=== PATIENT | female | born 1995 | race Caucasian/White ===

== ENCOUNTER 2018-01-01 07:33 | Emergency (ER) | payer BC ==
[2018-01-01] MEDS ORDERED: Ondansetron 4 MG/2 ML SDV IVPUSH ONE (08:11)
[2018-01-01] MEDS ORDERED: Sodium Chloride 0.9% 10 ML Syringe FLUSH PRN (08:11)
[2018-01-01] MEDS ORDERED: HYDROmorphone 0.5 MG/0.5 ML SYRINGE IVPUSH ONE (08:12)
[2018-01-01] MEDS ORDERED: Ketorolac 30 MG/ML SDV IVPUSH ONE (08:13)
[2018-01-01] MEDS ORDERED: Sodium Chloride 0.9% 1,000 ML IV SCH (08:15)
--- NOTE | 2018-01-01 08:22 | EDM.PDOC ---
ED HPI GENERAL MEDICAL PROBLEM - General Chief Complaint: Abdominal Pain Stated Complaint: R SIDE ABDOMINAL PAIN Time Seen by Provider: 01/01/18 08:04 Source of Information: Reports: Patient History Limitations: Reports: No Limitations - History of Present Illness INITIAL COMMENTS - FREE TEXT/NARRATIVE: The patient presents with right flank pain. This started about 1 week ago and it has gotten worse. She has urinary frequency. She has no dysuria. She has no fever or chills. She has some shortness of breath but no chest pain. She has nausea or no vomiting. She still has her gallbladder and appendix. She does not think she is but it is possible. Onset: Gradual Duration: Week(s): (1) Quality: Reports: Sharp Severity: Moderate Improves with: Reports: None Worsens with: Reports: None Associated Symptoms: Reports: Nausea/Vomiting. Denies: Chest Pain, Cough, Fever /Chills, Headaches, Shortness of Breath Right Lower Abdomen Pain Score (Numeric/FACES): 10 - Related Data Allergies Allergy/AdvReac Type Severity Reaction Status Date / Time metronidazole Allergy Swelling Verified 01/01/18 08:46 Home Meds: Home Meds Escitalopram [Lexapro] 10 mg PO DAILY 01/01/18 [History] Hydrocodone/Acetaminophen [Hydrocodon-Acetaminophen 5-325] 1 - 2 each PO Q6HR PRN #10 tablet 01/01/18 [Rx] Mupirocin Oint [Bactroban Oint] 1 applic TOP TID 01/01/18 [History] Nitrofurantoin Monohyd/M-Cryst [Macrobid 100 mg Capsule] 100 mg PO BID #10 capsule 01/01/18 [Rx] Pantoprazole [ProTONIX] 20 mg PO DAILY 01/01/18 [History] Sucralfate 1 gm PO QID 01/01/18 [History] hydrOXYzine HCl [hydrOXYzine] 25 mg PO Q6HR PRN 01/01/18 [History] Past Medical History Cardiovascular History: Reports: Other (See Below) Other Cardiovascular History: pulmonary stenosis Gastrointestinal History: Reports: None Psychiatric History: Reports: Anxiety - Past Surgical History Cardiovascular Surgical History: Reports: Other (See Below) Other Cardiovascular Surgeries/Procedures: sx. for pulmonary stenosis in 7th grade GI Surgical History: Reports: EGD Social & Family History - Family History Family Medical History: Noncontributory - Tobacco Use Smoking Status *Q: Current Every Day Smoker Years of Tobacco use: 10 Packs/Tins Daily: 1 - Caffeine Use Caffeine Use: Reports: Soda, Tea - Recreational Drug Use Recreational Drug Use: No ED ROS GENERAL - Review of Systems Review Of Systems: See Below Constitutional: Reports: No Symptoms HEENT: Reports: No Symptoms Respiratory: Reports: No Symptoms Cardiovascular: Reports: No Symptoms Endocrine: Reports: No Symptoms GI/Abdominal: Reports: Abdominal Pain, Nausea. Denies: Diarrhea, Vomiting : Reports: Flank Pain (Right) Musculoskeletal: Reports: No Symptoms ED EXAM, GI/ABD - Physical Exam Exam: See Below Exam Limited By: No Limitations General Appearance: Alert, No Apparent Distress Ears: Normal External Exam Nose: Normal Inspection Head: Atraumatic, Normocephalic Neck: Normal Inspection Respiratory/Chest: No Respiratory Distress, Lungs Clear, Normal Breath Sounds Cardiovascular: Regular Rate, Rhythm, No Edema, No Murmur GI/Abdominal Exam: Soft, No Organomegaly, No Mass, Tender (Moderate right lateral flank pain) Course - Vital Signs Last Recorded V/S: Last Vital Signs Temp 98.0 F 01/01/18 07:43 Pulse 85 01/01/18 07:43 Resp 14 01/01/18 07:43 BP 116/62 01/01/18 07:43 Pulse Ox 100 01/01/18 07:43 - Orders/Labs/Meds Orders: Active Orders 24 hr Category Date Time Status Peripheral IV Care [RC] . DIRECTED Care 01/01/18 08:11 Active UA W/MICROSCOPIC [URIN] Stat Lab 01/01/18 07:50 Ordered Sodium Chloride 0.9% [Normal Saline] 1,000 ml Med 01/01/18 08:15 Active IV ASDIRECTED Sodium Chloride 0.9% [Saline Flush] Med 01/01/18 08:11 Active 10 ml FLUSH ASDIRECTED PRN ED Antiemetic Medication Reflex [OM.PC] Stat Oth 01/01/18 08:11 Ordered Peripheral IV Insertion Adult [OM.PC] Stat Oth 01/01/18 08:11 Ordered Medication Orders Sodium Chloride (Normal Saline) 1,000 mls @ 125 mls/hr IV ASDIRECTED [facility] Last Admin: 01/01/18 08:38 Dose: 125 mls/hr Sodium Chloride (Saline Flush) 10 ml FLUSH ASDIRECTED PRN PRN Reason: Keep Vein Open Last Admin: 01/01/18 08:38 Dose: 10 ml Labs: Laboratory Tests 01/01/18 01/01/18 01/01/18 Range/Units 07:34 07:34 07:34 WBC 9.70 (3.98-10.04) K/mm3 RBC 4.36 (3.98-5.22) M/mm3 Hgb 13.6 (11.2-15.7) gm/L Hct 40.9 (34.1-44.9) % MCV 93.8 (79.4-94.8) fl MCH 31.2 (25.6-32.2) pg MCHC 33.3 (32.2-35.5) g/dl RDW Std Deviation 41.4 (36.4-46.3) fL Plt Count 255 (182-369) K/mm3 MPV 9.9 (9.4-12.3) fl Neut % (Auto) 65.4 (34.0-71.1) % Lymph % (Auto) 24.9 (19.3-51.7) % [place] % (Auto) 6.3 (4.7-12.5) % Eos % (Auto) 2.7 (0.7-5.8) Baso % (Auto) 0.2 (0.1-1.2) % Neut # (Auto) 6.34 H (1.56-6.13) K/mm3 Lymph # (Auto) 2.42 (1.18-3.74) K/mm3 [place] # (Auto) 0.61 H (0.24-0.36) K/mm3 Eos # (Auto) 0.26 (0.04-0.36) K/mm3 Baso # (Auto) 0.02 (0.01-0.08) K/mm3 Sodium 141 (136-145) mEq/L Potassium 4.0 (3.5-5.1) mEq/L Chloride 106 (98-107) mEq/L Carbon Dioxide 27 (21-32) mEq/L Anion Gap 12.0 (5-15) BUN 17 (7-18) mg/dL Creatinine 0.7 (0.55-1.02) mg/dL Est Cr Clr Drug Dosing 99.70 mL/min Estimated GFR (MDRD) > 60 (>60) mL/min BUN/Creatinine Ratio 24.3 H (14-18) Glucose 79 (74-106) mg/dL Calcium 8.7 (8.5-10.1) mg/dL Total Bilirubin 0.2 (0.2-1.0) mg/dL AST 11 L (15-37) U/L ALT 24 (14-59) U/L Alkaline Phosphatase 82 (46-116) U/L Total Protein 6.5 (6.4-8.2) g/dl Albumin 3.1 L (3.4-5.0) g/dl Globulin 3.4 gm/dL Albumin/Globulin Ratio 0.9 L (1-2) Lipase 266 (73-393) U/L HCG, Qual Negative (NEGATIVE) Urine Color (Yellow) Urine Appearance (Clear) Urine pH (5.0-8.0) Ur Specific [place] (1.005-1.030) Urine Protein (Negative) Urine Glucose (UA) (Negative) Urine Ketones (Negative) Urine Occult Blood (Negative) Urine Nitrite (Negative) Urine Bilirubin (Negative) Urine Urobilinogen (0.2-1.0) Ur Leukocyte Esterase (Negative) Urine RBC (0-5) /hpf Urine WBC (0-5) /hpf Ur Epithelial Cells (0-5) /hpf Urine Bacteria (FEW) /hpf Urine Mucus (FEW) /hpf 01/01/18 Range/Units 07:50 WBC (3.98-10.04) K/mm3 RBC (3.98-5.22) M/mm3 Hgb (11.2-15.7) gm/L Hct (34.1-44.9) % MCV (79.4-94.8) fl MCH (25.6-32.2) pg MCHC (32.2-35.5) g/dl RDW Std Deviation (36.4-46.3) fL Plt Count (182-369) K/mm3 MPV (9.4-12.3) fl Neut % (Auto) (34.0-71.1) % Lymph % (Auto) (19.3-51.7) % [place] % (Auto) (4.7-12.5) % Eos % (Auto) (0.7-5.8) Baso % (Auto) (0.1-1.2) % Neut # (Auto) (1.56-6.13) K/mm3 Lymph # (Auto) (1.18-3.74) K/mm3 [place] # (Auto) (0.24-0.36) K/mm3 Eos # (Auto) (0.04-0.36) K/mm3 Baso # (Auto) (0.01-0.08) K/mm3 Sodium (136-145) mEq/L Potassium (3.5-5.1) mEq/L Chloride (98-107) mEq/L Carbon Dioxide (21-32) mEq/L Anion Gap (5-15) BUN (7-18) mg/dL Creatinine (0.55-1.02) mg/dL Est Cr Clr Drug Dosing mL/min Estimated GFR (MDRD) (>60) mL/min BUN/Creatinine Ratio (14-18) Glucose (74-106) mg/dL Calcium (8.5-10.1) mg/dL Total Bilirubin (0.2-1.0) mg/dL AST (15-37) U/L ALT (14-59) U/L Alkaline Phosphatase (46-116) U/L Total Protein (6.4-8.2) g/dl Albumin (3.4-5.0) g/dl Globulin gm/dL Albumin/Globulin Ratio (1-2) Lipase (73-393) U/L HCG, Qual (NEGATIVE) Urine Color Light yellow (Yellow) Urine Appearance Clear (Clear) Urine pH 6.0 (5.0-8.0) Ur Specific [place] 1.020 (1.005-1.030) Urine Protein Negative (Negative) Urine Glucose (UA) Negative (Negative) Urine Ketones Negative (Negative) Urine Occult Blood Negative (Negative) Urine Nitrite Negative (Negative) Urine Bilirubin Negative (Negative) Urine Urobilinogen 0.2 (0.2-1.0) Ur Leukocyte Esterase 1+ H (Negative) Urine RBC Not seen (0-5) /hpf Urine WBC 5-10 H (0-5) /hpf Ur Epithelial Cells 0-5 (0-5) /hpf Urine Bacteria Few (FEW) /hpf Urine Mucus Not seen (FEW) /hpf Meds: Medications Generic Name Dose Route Start Last Admin Trade Name Freq PRN Reason Stop Dose Admin Sodium Chloride 1,000 mls @ 125 mls/hr 01/01/18 08:15 01/01/18 08:38 Normal Saline IV 125 mls/hr ASDIRECTED KHADRA Administration Sodium Chloride 10 ml 01/01/18 08:11 01/01/18 08:38 Saline Flush FLUSH 10 ml ASDIRECTED PRN Administration Keep Vein Open Discontinued Medications Generic Name Dose Route Start Last Admin Trade Name Noemy PRN Reason Stop Dose Admin Diatrizoate Meglum/Diatrizoate Sod 90 ml 01/01/18 09:40 Gastrografin 37% PO 01/01/18 09:41 ONETIME ONE Hydromorphone HCl 0.5 mg 01/01/18 08:12 01/01/18 08:37 Dilaudid IVPUSH 01/01/18 08:13 0.5 mg ONETIME ONE Administration Ketorolac Tromethamine 30 mg 01/01/18 08:13 01/01/18 08:37 Toradol IVPUSH 01/01/18 08:14 30 mg ONETIME ONE Administration Ondansetron HCl 4 mg 01/01/18 08:11 01/01/18 08:37 Zofran IVPUSH 01/01/18 08:12 4 mg ONETIME ONE Administration - Re-Assessments/Exams Free Text/Narrative Re-Assessment/Exam: 01/01/18 08:24 I ordered an IV NS at 125mL/hr, zofran 4mg IV, dilaudid 0.5mg IV, labs, UA and CT. 01/01/18 11:21 Her CBC and CMP look good. Her Hcg is negative. Her lipase is normal. Her UA shows no UTI. Her CT shows nothing acute. I will treat her for the UTI but I do not think that was causing all of her pain. She is not sure if she ran into something today. Departure - Departure Time of Disposition: 11:25 Disposition: Home, Self-Care 01 Condition: Good Clinical Impression: Right flank pain UTI (urinary tract infection) Qualifiers: Urinary tract infection type: acute cystitis Hematuria presence: without hematuria Qualified Code(s): N30.00 - Acute cystitis without hematuria - Discharge Information Prescriptions: Nitrofurantoin Monohyd/M-Cryst [Macrobid 100 mg Capsule] 100 mg PO BID #10 capsule Referrals: Sienna Linares PA-C [Primary Care Provider] - 1 Week Forms: ED Department Discharge Additional Instructions: Drink plenty of fluids. Take the macrobid 2 times per day for 5 days. Take motrin or tylenol for pain. You may also take some hydrocodone for pain. Please return if you are worse. - My Orders Last 24 Hours: My Active Orders 01/01/18 07:50 UA W/MICROSCOPIC [URIN] Stat 01/01/18 08:11 Peripheral IV Care [RC] . DIRECTED Sodium Chloride 0.9% [Saline Flush] 10 ml FLUSH ASDIRECTED PRN ED Antiemetic Medication Reflex [OM.PC] Stat Peripheral IV Insertion Adult [OM.PC] Stat 01/01/18 08:15 Sodium Chloride 0.9% [Normal Saline] 1,000 ml IV ASDIRECTED - Assessment/Plan Last 24 Hours: My Active Orders 01/01/18 07:50 UA W/MICROSCOPIC [URIN] Stat 01/01/18 08:11 Peripheral IV Care [RC] . DIRECTED Sodium Chloride 0.9% [Saline Flush] 10 ml FLUSH ASDIRECTED PRN ED Antiemetic Medication Reflex [OM.PC] Stat Peripheral IV Insertion Adult [OM.PC] Stat 01/01/18 08:15 Sodium Chloride 0.9% [Normal Saline] 1,000 ml IV ASDIRECTED
[2018-01-01] MEDS ORDERED: Diatrizoate Meglumine/Diatrizoate Sodium 37% 120 ML Bottle PO ONE (09:40)
--- NOTE | 2018-01-01 10:43 | CT ---
CT abdomen and pelvis Technique: Multiple axial sections were obtained from above the dome of the diaphragm inferiorly through the pubic symphysis. Intravenous contrast not utilized. Oral contrast has been given. Findings: Images are grainy decreasing details which apparently is due to equipment malfunction. Comparison: No previous study. Appendix is seen which is normal. Kidneys show no abnormal calcifications. No ureteral dilatation or ureteral stone is seen. No bladder calculi are seen. Visualized lung bases shows nothing acute. Noncontrast appearance of the liver and spleen appear within normal limits. Adrenal glands show no nodule. Gallbladder contains no calcified gallstones. Pancreas is within normal limits. Aorta shows no aneurysmal dilatation. No retroperitoneal adenopathy or mesenteric abnormalities are seen. No pelvic mass or adenopathy is seen. No free fluid or inflammatory change is seen. Bone window settings were reviewed which appears within normal limits for the patient's age. Impression: 1. Slightly diminished details due to machine malfunction. 2. Appendix appears normal. No renal calculi, ureteral dilatation or ureteral stone is seen. 3. Other portions of the noncontrast CT study of the abdomen and pelvis show nothing acute. Diagnostic code #2
== END 2018-01-01 12:15 | disposition home or self-care (01) ==
LOC: JD.ED 07:33
DX: N30.00 Acute cystitis without hematuria (principal); F17.210 Nicotine dependence, cigarettes, uncomplicated; Z88.8 Allergy status to other drugs, medicaments and biological substances
CPT/HCPCS: 36415; 74176; 80053; 81001; 83690; 84703; 85025; 96361; 96374; 96375; 99285; J1170; J1885; J2405; J7040; J7050; Q9963; 99284

== ENCOUNTER 2018-04-03 05:31 | Emergency (ER) | payer BC ==
[2018-04-03] MEDS ORDERED: Ketorolac 30 MG/ML SDV IVPUSH ONE (06:08)
[2018-04-03] MEDS ORDERED: Prochlorperazine 5 MG in Sodium Chloride 0.9% 50 ML IV ONE (06:09)
[2018-04-03] MEDS ORDERED: diphenhydrAMINE 50 MG/ML SDV IVPUSH ONE (06:10)
--- NOTE | 2018-04-03 12:11 | ER ---
REASON FOR EMERGENCY ROOM VISIT: Headaches. HISTORY: This 22-year-old woman comes in because she has had a headache that has been bothering her more than usual last night and she has not been able to get any sleep. She states that she has a history of migraine headaches dating back to grade school. They were quite troublesome and she had to see a physician quite often during [employer] and high school and then things tended to settle down only to increase again in the last couple of years. She has seen Dr. Salazar, her primary care provider in [place], and since moving to [place], she has seen Sienna Linares, nurse practitioner, here for her medical needs. She states that she has been seeing these providers for her headaches and workup of number of other constellation of symptoms somewhat related to these headaches. She states that the headache is constant and tends to wax and wane. It is not throbbing. It does not have any thunderclap type characteristics to it. It is more on the right side of her head over the temporal area than the left side. Exposure to bright lights and loud noises worsens it. She rarely experiences nausea from her headache. She has been emotionally labile, partly because of sleep deprivation and states that "I can't even think straight." She has not had any nausea or vomiting this evening. She denies any visual symptoms. She has not had any numbness or weakness, although she relates a peculiar history for the last 6 weeks or so of experiencing electrical shock type sensations in the bottoms of her feet. PAST MEDICAL HISTORY: Significant for urinary tract infection. See electronic medical record. CURRENT MEDICATIONS: See EMR. ALLERGIES: Metronidazole. REVIEW OF SYSTEMS: Pertinent positives and negatives as listed in the HPI. SOCIAL HISTORY: She lives with a boyfriend. She is a smoker. Denies any illicit drug use. She rarely uses alcohol. PHYSICAL EXAMINATION: GENERAL: She seems to be somewhat unkempt. See electronic medical record. VITAL SIGNS: She is afebrile, blood pressure 137/92, pulse of 92, O2 sats 100% on room air. HEENT: Head is normocephalic. No temporal artery tenderness. TMs are normal. Eyes; no conjunctival injection. Oropharynx is normal. NECK: Supple. No adenopathy. No bruits. CHEST: Clear to auscultation. CARDIAC: Regular rate without murmur. EXTREMITIES: Normal pulses. No edema. NEUROLOGIC: Cranial nerves II through XII are intact. Deep tendon reflexes are symmetrical bilaterally in the upper and lower extremities. Muscle strength, bulk, and tone are normal. Sensory examination is normal to crude touch. IMPRESSION: Probable migraine headache given her history with considerable emotional overlay. PLAN: We were set to give her Toradol, Compazine, and Benadryl and she refused any needles and wants to take pills and prefers ibuprofen. I instructed her to follow up with her provider, Sienna Linares, who may want to give consideration to CT scan in light of her worsening headaches. That will be something for them to decide. I did discuss ibuprofen, aspirin, and Tylenol, and she will give this a try. All questions were answered. MMODAL /[id number]
== END 2018-04-03 06:50 | disposition left against medical advice (07) ==
LOC: JD.ED 05:31
DX: R51 Headache (principal); F17.290 Nicotine dependence, other tobacco product, uncomplicated; Z88.8 Allergy status to other drugs, medicaments and biological substances
CPT/HCPCS: 99283; 99284

== ENCOUNTER 2021-05-17 14:04 | Emergency (ER) | payer BC | END 2021-05-17 16:00 | LOC: JD.ED 14:04 | DX: Z53.21 Procedure and treatment not carried out due to patient leaving prior to being seen by health care provider (principal) ==

== ENCOUNTER 2023-09-08 17:15 | Emergency (ER) | payer SELFPAY ==
[2023-09-08 18:52] LABS: CORONAVIRUS COVID-19 NAA NEGATIVE (NEGATIVE); INFLUENZA A NAA NEGATIVE (NEGATIVE); RESPIRATORY SYNCYTIAL VIR NAA NEGATIVE (NEGATIVE)
[2023-09-08] MEDS ORDERED: Doxycycline Monohydrate 100 MG Cap PO ONE (19:44)
[2023-09-08] MEDS: Azithromycin 250 MG Tab PO ONE (19:45)
[2023-09-08] MEDS: Benzonatate 100 MG Cap PO ONE (19:45)
== END 2023-09-08 19:50 | disposition home or self-care (01) ==
LOC: JD.ED 17:15
DX: J10.1 Influenza due to other identified influenza virus with other respiratory manifestations (principal); J40 Bronchitis, not specified as acute or chronic; F17.210 Nicotine dependence, cigarettes, uncomplicated; Z88.8 Allergy status to other drugs, medicaments and biological substances
CPT/HCPCS: 0241U; 71045; 99283; A9270

== ENCOUNTER 2023-12-03 10:33 | Emergency (ER) | payer SELFPAY ==
[2023-12-03] MEDS: Metoclopramide 10 MG/2 ML SDV IVPUSH ONE (11:15)
[2023-12-03] MEDS: diphenhydrAMINE 50 MG/ML SDV IVPUSH ONE (11:17)
[2023-12-03] MEDS: Lactated Ringers 1,000 ML IV ONE (11:20)
[2023-12-03] MEDS: Ketorolac 30 MG/ML SDV IVPUSH ONE (12:09)
[2023-12-03] MEDS: SUMAtriptan 6 MG/0.5 ML SDV SUBCUT ONE (12:35)
[2023-12-03] MEDS: Lactated Ringers 1,000 ML IV SCH (12:36)
== END 2023-12-03 13:47 | disposition home or self-care (01) ==
LOC: JD.ED 10:33
DX: G43.909 Migraine, unspecified, not intractable, without status migrainosus (principal); F17.210 Nicotine dependence, cigarettes, uncomplicated; Z88.8 Allergy status to other drugs, medicaments and biological substances
CPT/HCPCS: 70450; 96361; 96372; 96374; 96375; 99284; J1200; J1885; J2765; J3030; J7120

== ENCOUNTER 2025-04-07 07:44 | Emergency (ER) | payer SELFPAY ==
[2025-04-07] MEDS ORDERED: methylPREDNISolone Sodium Succinate 125 MG/2 ML SDV IVPUSH ONE (08:32)
== END 2025-04-07 08:52 | disposition home or self-care (01) ==
LOC: JD.ED 07:44
DX: L50.9 Urticaria, unspecified (principal); L85.3 Xerosis cutis; Z88.8 Allergy status to other drugs, medicaments and biological substances; Z79.899 Other long term (current) drug therapy
CPT/HCPCS: 99282; 99283

== ENCOUNTER 2025-06-09 08:49 | Day surgery (SDC) | payer SELFPAY ==
[~2025-06-09 08:49] MED LIST: Sodium Chloride 0.9% 10 ML Syringe FLUSH PRN; Sodium Chloride 0.9% 10 ML Syringe FLUSH SCH
[2025-06-09] MEDS: Lactated Ringers 1,000 ML IV SCH (09:30)
[2025-06-09] MEDS ORDERED: propofoL 1,000 MG/100 ML 100 ML ONE (09:51)
[2025-06-09] MEDS ORDERED: Dexamethasone 4 MG/ML 5 ML MDV ONE (09:52)
[2025-06-09] MEDS ORDERED: fentaNYL 250 MCG/5 ML SDV ONE (09:52)
[2025-06-09] MEDS ORDERED: Propofol 200 MG/20 ML SDV ONE ×2 (09:52→11:15)
[2025-06-09] MEDS ORDERED: Midazolam 1 MG/ML 2 ML SDV ONE (09:52)
[2025-06-09] MEDS ORDERED: Ondansetron 4 MG/2 ML SDV ONE (09:52)
[2025-06-09] MEDS ORDERED: dexmedeTOMIDine HCl 200 MCG/2 ML SDV ONE (09:55)
[2025-06-09] MEDS: EPINEPHrine 1 MG/ML SDV ONE (10:40)
[2025-06-09] MEDS ORDERED: droPERidol 2.5 MG/ML SDV IV PRN (10:47)
[2025-06-09] MEDS ORDERED: Esmolol 100 MG/10 ML SDV ONE (11:02)
[2025-06-09] MEDS ORDERED: Ketorolac 30 MG/ML SDV ONE (11:16)
[2025-06-09] MEDS: fentaNYL 100 MCG/2 ML SDV IVPUSH PRN (12:15)
== END 2025-06-09 14:46 | disposition home or self-care (01) ==
LOC: JD.SDS 08:49
PROVIDERS: ATTEND Surgery
DX: K80.10 Calculus of gallbladder with chronic cholecystitis without obstruction (principal); F17.290 Nicotine dependence, other tobacco product, uncomplicated; Z88.8 Allergy status to other drugs, medicaments and biological substances; Z79.899 Other long term (current) drug therapy
CPT/HCPCS: 47562; 81025; A9270; J0169; J0665; J0690; J1100; J1805; J2003; J2250; J2405; J2704; J3010; J7120; 00790; J1171; J1885; J3490